=== PATIENT | female | born 1990 | race Caucasian/White ===

== ENCOUNTER 2017-02-13 10:17 | Outpatient (CLI) | payer BC, OTHER ==
[~2017-02-13] VITALS: Ht 162.6 cm; Wt 93.4 kg
[~2017-02-13 10:17] MED LIST: AQUAPHOR W-NAT50 GM TP; CLINDAMYCIN HC300 MG PO; ENDOCET 5-3251 EACH PO; MEDROL DOSEPAK4 MG PO; MOTRIN600 MG PO; MOTRIN800 MG PO; Motrin PO; NOHOMEMEDS; PERCOCET 5/31 TABLET PO; PREDNISONE10 MG PO; PRENATAL CAPSU1 EACH PO; PRENATAL TABLE1 EAC3 PO; Percocet 5/325,Endoc PO; ZITHROMAX Z-PA250 MG PO
[2017-02-13 10:44] VITALS: BP 128/71
[2017-02-13 10:45] VITALS: BP 128/71
[2017-02-13 11:54] LABS: EOSINOPHIL (%) 1.1 % (0-5); EOSINOPHIL COUNT 0.1 K/uL (0-0.3); HEMATOCRIT 37.1 % (36.0-46.0); IMMATURE GRANULOCYTE (%) 0.5 % (0.0-0.7); IMMATURE GRANULOCYTE COUNT 0.1 K/uL; INSTRUMENT ABS NEUTROPHIL CT 8.9 K/uL; MCV 91.2 FL (83-99); MEAN PLAT.VOLUME 12.8 uM^3 (9.5-12.4); MONOCYTE (%) 6.3 % (3-12); MONOCYTE COUNT 0.8 K/uL (0-0.8); NEUTROPHIL (%) 74.8 % (45-76); NEUTROPHIL COUNT 8.9 K/uL (1.8-6.4); PLATELET COUNT 174 K/uL (156-360); RBC DIS.WIDTH-CV 12.3 % (11.8-14.6); RBC DIS.WIDTH-SD 40.9 % (39-53); RED BLOOD COUNT 4.07 M/uL (3.80-5.20); WHITE BLOOD COUNT 11.9 K/uL (4.1-10.2)
[2017-02-13 12:00] VITALS: BP 124/67
[2017-02-13 12:18] LABS: ALKALINE PHOSPHATASE 58 IU/L (3-129); ANION GAP 7 MEQ/L (2-14); CHLORIDE 108 MEQ/L (99-109); GFR ESTIMATE (CALCULATED) > 59 mL/min/; GLUCOSE 79 mg/dL (70-99); POTASSIUM 3.8 MEQ/L (3.7-5.4); SAMPLE HEMOLYSIS CHECK 0; SAMPLE ICTERIC CHECK 0; SAMPLE LIPEMIA CHECK 0; SODIUM 138 MEQ/L (136-147); TOTAL BILIRUBIN 0.2 MG/DL (0.0-1.0); UREA NITROGEN (BUN) 6 mg/dL (9-23)
== END 2017-02-13 13:40 | disposition home or self-care (01) ==
LOC: LDRP-OP 10:17 → 2WEST 10:18
PROVIDERS: Obstetrics & Gynecology
DX: O13.2 Gestational [pregnancy-induced] hypertension without significant proteinuria, second trimester (principal); Z3A.23 23 weeks gestation of pregnancy; O99.332 Smoking (tobacco) complicating pregnancy, second trimester; F17.200 Nicotine dependence, unspecified, uncomplicated; O99.212 Obesity complicating pregnancy, second trimester; Z68.33 Body mass index [BMI] 33.0-33.9, adult; E66.9 Obesity, unspecified; O34.219 Maternal care for unspecified type scar from previous cesarean delivery
CPT/HCPCS: 59025; 80053; 85025; G0378

== ENCOUNTER 2017-03-19 12:07 | Outpatient (CLI) | payer BC, OTHER ==
[2017-03-19 12:35] VITALS: BP 129/73
[2017-03-19 12:55] VITALS: BP 117/60
[2017-03-19 13:21] VITALS: BP 126/66
[2017-03-19 14:25] VITALS: BP 116/60
[2017-03-19 14:27] LABS: ANION GAP 9 MEQ/L (2-14); CHLORIDE 107 MEQ/L (99-109); POTASSIUM 4.2 MEQ/L (3.7-5.4); SAMPLE HEMOLYSIS CHECK 1; SAMPLE ICTERIC CHECK 0; SAMPLE LIPEMIA CHECK 0; SODIUM 136 MEQ/L (136-147); TOTAL BILIRUBIN 0.3 MG/DL (0.0-1.0)
[2017-03-19 14:28] LABS: UR CREATININE CONCENTRATION 86.4 MG/DL
[2017-03-19 14:33] LABS: ALKALINE PHOSPHATASE 71 IU/L (3-129); GFR ESTIMATE (CALCULATED) > 59 mL/min/; GLUCOSE 67 mg/dL (70-99); LACTATE DEHYDROGENASE 254 IU/L (20-246); UREA NITROGEN (BUN) 4 mg/dL (9-23); URIC ACID 3.2 mg/dL (3.1-9.2)
[2017-03-19 15:19] LABS: EOSINOPHIL (%) 0.6 % (0-5); EOSINOPHIL COUNT 0.1 K/uL (0-0.3); HEMATOCRIT 39.9 % (36.0-46.0); IMMATURE GRANULOCYTE (%) 0.6 % (0.0-0.7); IMMATURE GRANULOCYTE COUNT 0.1 K/uL; INSTRUMENT ABS NEUTROPHIL CT 14.3 K/uL; LYMPHOCYTE COUNT 2.1 K/uL (1.0-2.8); MCH 31.3 PG (29.0-34.0); MCHC 34.1 G/DL (30.0-36.0); MCV 91.7 FL (83-99); MEAN PLAT.VOLUME 12.9 uM^3 (9.5-12.4); MONOCYTE (%) 5.6 % (3-12); NEUTROPHIL (%) 81.4 % (45-76); NEUTROPHIL COUNT 14.3 K/uL (1.8-6.4); PLATELET COUNT 150 K/uL (156-360); RBC DIS.WIDTH-CV 12.5 % (11.8-14.6); RBC DIS.WIDTH-SD 41.5 % (39-53); RED BLOOD COUNT 4.35 M/uL (3.80-5.20); WHITE BLOOD COUNT 17.5 K/uL (4.1-10.2)
== END 2017-03-19 15:50 | disposition home or self-care (01) ==
LOC: LDRP-OP 12:07 → 2WEST 12:08 → LDRP-OP 07-08 16:54
PROVIDERS: Obstetrics & Gynecology
DX: O13.3 Gestational [pregnancy-induced] hypertension without significant proteinuria, third trimester (principal); Z3A.28 28 weeks gestation of pregnancy
CPT/HCPCS: 59025; 80053; 82570; 83615; 84156; 84550; 85025; G0378

== ENCOUNTER 2017-05-07 12:37 | Outpatient (CLI) | payer BC, OTHER ==
[2017-05-07 12:55] VITALS: BP 135/74
[2017-05-07 13:25] VITALS: BP 133/72
[2017-05-07 13:50] LABS: EOSINOPHIL COUNT 0.1 K/uL (0-0.3); HEMATOCRIT 37.5 % (36.0-46.0); IMMATURE GRANULOCYTE (%) 0.5 % (0.0-0.7); IMMATURE GRANULOCYTE COUNT 0.1 K/uL; INSTRUMENT ABS NEUTROPHIL CT 7.5 K/uL; LYMPHOCYTE COUNT 2.3 K/uL (1.0-2.8); MCH 32.1 PG (29.0-34.0); MCHC 35.7 G/DL (30.0-36.0); MCV 89.7 FL (83-99); MEAN PLAT.VOLUME 13.2 uM^3 (9.5-12.4); MONOCYTE COUNT 0.6 K/uL (0-0.8); NEUTROPHIL (%) 71.1 % (45-76); NEUTROPHIL COUNT 7.5 K/uL (1.8-6.4); PLATELET COUNT 125 K/uL (156-360); RBC DIS.WIDTH-CV 12.8 % (11.8-14.6); RBC DIS.WIDTH-SD 41.2 % (39-53); RED BLOOD COUNT 4.18 M/uL (3.80-5.20); WHITE BLOOD COUNT 10.6 K/uL (4.1-10.2)
[2017-05-07 14:32] VITALS: BP 116/64
[2017-05-07 15:03] VITALS: BP 123/57
[2017-05-07 15:04] LABS: CHLORIDE 107 MEQ/L (99-109); POTASSIUM 3.5 MEQ/L (3.7-5.4); SODIUM 136 MEQ/L (136-147)
[2017-05-07 15:05] LABS: ANION GAP 9 MEQ/L (2-14); SAMPLE HEMOLYSIS CHECK 0; SAMPLE ICTERIC CHECK 0; SAMPLE LIPEMIA CHECK 0; TOTAL BILIRUBIN 0.3 MG/DL (0.0-1.0)
[2017-05-07 15:10] LABS: ALKALINE PHOSPHATASE 111 IU/L (3-129); GFR ESTIMATE (CALCULATED) > 59 mL/min/; GLUCOSE 74 mg/dL (70-99); LACTATE DEHYDROGENASE 148 IU/L (20-246); UREA NITROGEN (BUN) 4 mg/dL (9-23); URIC ACID 4.6 mg/dL (3.1-9.2)
== END 2017-05-07 15:35 | disposition home or self-care (01) ==
LOC: LDRP-OP 12:37 → 2WEST 12:38 → LDRP-OP 07-08 19:52
PROVIDERS: Obstetrics & Gynecology
DX: O13.3 Gestational [pregnancy-induced] hypertension without significant proteinuria, third trimester (principal); Z3A.35 35 weeks gestation of pregnancy
CPT/HCPCS: 59025; 80053; 82570; 83615; 84156; 84550; 85025; G0378

== ENCOUNTER 2017-05-09 10:19 | Outpatient (CLI) | payer BC, OTHER ==
[~2017-05-09] VITALS: Ht 162.6 cm; Wt 97.7 kg
[2017-05-09 10:34] VITALS: BP 133/85
[2017-05-09] MEDS ORDERED: MAKENA250 MG/11 IM (10:57)
[2017-05-09 10:58] VITALS: BP 144/65
[2017-05-09 11:32] VITALS: BP 134/57
[2017-05-09 11:51] LABS: UR CREATININE CONCENTRATION 352.1 MG/DL
[2017-05-09 11:54] VITALS: BP 140/73
[2017-05-09 12:14] LABS: EOSINOPHIL (%) 0.7 % (0-5); EOSINOPHIL COUNT 0.1 K/uL (0-0.3); HEMATOCRIT 40.8 % (36.0-46.0); IMMATURE GRANULOCYTE (%) 0.7 % (0.0-0.7); IMMATURE GRANULOCYTE COUNT 0.1 K/uL; INSTRUMENT ABS NEUTROPHIL CT 7.3 K/uL; LYMPHOCYTE COUNT 2.2 K/uL (1.0-2.8); MCH 31.3 PG (29.0-34.0); MCHC 34.8 G/DL (30.0-36.0); MCV 90.1 FL (83-99); MEAN PLAT.VOLUME 13.7 uM^3 (9.5-12.4); MONOCYTE (%) 5.4 % (3-12); MONOCYTE COUNT 0.6 K/uL (0-0.8); NEUTROPHIL (%) 71.6 % (45-76); NEUTROPHIL COUNT 7.3 K/uL (1.8-6.4); PLATELET COUNT 147 K/uL (156-360); RBC DIS.WIDTH-CV 12.9 % (11.8-14.6); RBC DIS.WIDTH-SD 42.4 % (39-53); RED BLOOD COUNT 4.53 M/uL (3.80-5.20); WHITE BLOOD COUNT 10.2 K/uL (4.1-10.2)
[2017-05-09 13:19] LABS: ANION GAP 9 MEQ/L (2-14); CHLORIDE 107 MEQ/L (99-109); POTASSIUM 3.9 MEQ/L (3.7-5.4); SAMPLE HEMOLYSIS CHECK 0; SAMPLE ICTERIC CHECK 0; SAMPLE LIPEMIA CHECK 0; SODIUM 137 MEQ/L (136-147); TOTAL BILIRUBIN 0.3 MG/DL (0.0-1.0)
[2017-05-09 13:24] LABS: ALKALINE PHOSPHATASE 119 IU/L (3-129); GFR ESTIMATE (CALCULATED) > 59 mL/min/; GLUCOSE 66 mg/dL (70-99); UREA NITROGEN (BUN) 6 mg/dL (9-23)
== END 2017-05-09 13:40 | disposition home or self-care (01) ==
LOC: LDRP-OP 10:19 → 2WEST 10:20 → LDRP-OP 07-08 15:40
PROVIDERS: Advanced Practice Midwife
DX: O13.3 Gestational [pregnancy-induced] hypertension without significant proteinuria, third trimester (principal); Z3A.35 35 weeks gestation of pregnancy
CPT/HCPCS: 59025; 80053; 82570; 84156; 85025; G0378; J0702

== ENCOUNTER 2017-05-10 11:25 | Outpatient (CLI) | payer BC, OTHER ==
[~2017-05-10] VITALS: Ht 162.6 cm; Wt 97.5 kg
[~2017-05-10 11:25] MED LIST changes: +MAKENA250 MG/11 IM
[2017-05-10 11:47] VITALS: BP 141/75
[2017-05-10 12:00] VITALS: BP 122/68
[2017-05-10 12:22] VITALS: BP 119/72
[2017-05-10 12:53] VITALS: BP 120/81
== END 2017-05-10 13:00 | disposition home or self-care (01) ==
LOC: LDRP-OP 11:25 → 2WEST 11:26 → LDRP-OP 07-08 20:04
DX: O13.3 Gestational [pregnancy-induced] hypertension without significant proteinuria, third trimester (principal); Z3A.36 36 weeks gestation of pregnancy
CPT/HCPCS: 59025; G0378; J0702

== ENCOUNTER 2017-05-13 15:17 | Inpatient (IN) | payer BC, OTHER ==
[~2017-05-13] VITALS: Ht 162.6 cm; Wt 97.9 kg
[2017-05-13 15:38] VITALS: BP 162/73
[2017-05-13 15:54] VITALS: BP 151/81
[2017-05-13 16:09] VITALS: BP 148/66
[2017-05-13 16:39] LABS: EOSINOPHIL (%) 0.3 % (0-5); HEMATOCRIT 39.1 % (36.0-46.0); IMMATURE GRANULOCYTE (%) 1.7 % (0.0-0.7); IMMATURE GRANULOCYTE COUNT 0.2 K/uL; INSTRUMENT ABS NEUTROPHIL CT 9.6 K/uL; MCH 32.2 PG (29.0-34.0); MCHC 35.8 G/DL (30.0-36.0); MCV 89.9 FL (83-99); MEAN PLAT.VOLUME 13.7 uM^3 (9.5-12.4); MONOCYTE (%) 7.7 % (3-12); MONOCYTE COUNT 1.1 K/uL (0-0.8); NEUTROPHIL (%) 68.7 % (45-76); NEUTROPHIL COUNT 9.6 K/uL (1.8-6.4); NRBC (%) 0.1 /100 WBC (0-0); PLATELET COUNT 123 K/uL (156-360); RBC DIS.WIDTH-CV 12.8 % (11.8-14.6); RBC DIS.WIDTH-SD 41.3 % (39-53); RED BLOOD COUNT 4.35 M/uL (3.80-5.20)
[2017-05-13 16:49] LABS: ANION GAP 12 MEQ/L (2-14); CHLORIDE 107 MEQ/L (99-109); POTASSIUM 3.3 MEQ/L (3.7-5.4); SAMPLE HEMOLYSIS CHECK 0; SAMPLE ICTERIC CHECK 0; SAMPLE LIPEMIA CHECK 0; SODIUM 139 MEQ/L (136-147); TOTAL BILIRUBIN 0.3 MG/DL (0.0-1.0)
[2017-05-13 16:58] LABS: ALKALINE PHOSPHATASE 103 IU/L (3-129); GFR ESTIMATE (CALCULATED) > 59 mL/min/; GLUCOSE 77 mg/dL (70-99); UREA NITROGEN (BUN) 8 mg/dL (9-23); URIC ACID 5.3 mg/dL (3.1-9.2)
[2017-05-13 18:26] LABS: UR CREATININE CONCENTRATION 239.8 MG/DL
[2017-05-13 18:27] LABS: BASE EXCESS -14.9 mEq/L (-3 to +3); BICARBONATE 18.5 mEq/L (22-26); CARBOXY HGB 3.1 % (0-5); COMMENTS - BLOOD GASES FROM O.R.; METHEMOGLOBIN 1.5 % (0-1.5); PCO2 75 mm Hg (35-45); PO2 < 28 mm Hg (80-100); SITE VENOUES CORD SAMPL
[2017-05-13 18:30] LABS: BASE EXCESS -15.5 mEq/L (-3 to +3); BICARBONATE 17.4 mEq/L (22-26); METHEMOGLOBIN 1.8 % (0-1.5)
[2017-05-13 18:31] LABS: COMMENTS - BLOOD GASES FROM O.R.; PCO2 69 mm Hg (35-45); PO2 < 28 mm Hg (80-100); SITE ARTERIAL CORD SAMP.; pH 7.01 (7.35-7.45)
[2017-05-13 19:31] VITALS: BP 134/76
[2017-05-13 20:33] VITALS: BP 120/74
[2017-05-13 22:34] VITALS: BP 140/64
[2017-05-13 23:29] LABS: HEMATOCRIT 32.7 % (36.0-46.0); MCH 31.8 PG (29.0-34.0); MCHC 35.5 G/DL (30.0-36.0); MCV 89.6 FL (83-99); MEAN PLAT.VOLUME 13.1 uM^3 (9.5-12.4); NRBC (%) 0.1 /100 WBC (0-0); PLATELET COUNT 96 K/uL (156-360); RBC DIS.WIDTH-CV 12.7 % (11.8-14.6); RBC DIS.WIDTH-SD 41.6 % (39-53); RED BLOOD COUNT 3.65 M/uL (3.80-5.20); WHITE BLOOD COUNT 22.5 K/uL (4.1-10.2)
[2017-05-14] VITALS (7 sets, daily range): BP systolic 128–143; BP diastolic 74–87
[2017-05-14] MEDS ORDERED: PERCOCET 5/31 TABLET PO (02:58)
[2017-05-14] MEDS ORDERED: MOTRIN800 MG PO (02:58)
[2017-05-14 07:32] LABS: EOSINOPHIL (%) 0.3 % (0-5); HEMATOCRIT 29.2 % (36.0-46.0); IMMATURE GRANULOCYTE (%) 0.8 % (0.0-0.7); IMMATURE GRANULOCYTE COUNT 0.1 K/uL; INSTRUMENT ABS NEUTROPHIL CT 10.5 K/uL; LYMPHOCYTE COUNT 2.2 K/uL (1.0-2.8); MCH 31.5 PG (29.0-34.0); MCHC 34.9 G/DL (30.0-36.0); MCV 90.1 FL (83-99); MEAN PLAT.VOLUME 13.1 uM^3 (9.5-12.4); MONOCYTE (%) 9.1 % (3-12); MONOCYTE COUNT 1.3 K/uL (0-0.8); NEUTROPHIL (%) 73.9 % (45-76); NEUTROPHIL COUNT 10.5 K/uL (1.8-6.4); PLATELET COUNT 85 K/uL (156-360); RBC DIS.WIDTH-CV 12.8 % (11.8-14.6); RBC DIS.WIDTH-SD 41.6 % (39-53); RED BLOOD COUNT 3.24 M/uL (3.80-5.20); WHITE BLOOD COUNT 14.1 K/uL (4.1-10.2)
[2017-05-15 03:21] VITALS: BP 152/85
[2017-05-15 07:10] LABS: EOSINOPHIL COUNT 0.1 K/uL (0-0.3); HEMATOCRIT 28.3 % (36.0-46.0); IMMATURE GRANULOCYTE (%) 1.2 % (0.0-0.7); IMMATURE GRANULOCYTE COUNT 0.1 K/uL; INSTRUMENT ABS NEUTROPHIL CT 7.9 K/uL; LYMPHOCYTE COUNT 2.1 K/uL (1.0-2.8); MCH 31.5 PG (29.0-34.0); MCHC 34.6 G/DL (30.0-36.0); MEAN PLAT.VOLUME 13.8 uM^3 (9.5-12.4); MONOCYTE (%) 10.5 % (3-12); MONOCYTE COUNT 1.2 K/uL (0-0.8); NEUTROPHIL (%) 68.8 % (45-76); NEUTROPHIL COUNT 7.9 K/uL (1.8-6.4); PLATELET COUNT 82 K/uL (156-360); RBC DIS.WIDTH-CV 12.9 % (11.8-14.6); RED BLOOD COUNT 3.11 M/uL (3.80-5.20); WHITE BLOOD COUNT 11.5 K/uL (4.1-10.2)
[2017-05-15 08:30] VITALS: BP 151/78
== END 2017-05-15 15:50 | disposition home or self-care (01) | DRG 766 ==
LOC: LDRP-OP 15:17 → 2WEST 15:18 → LDRP-OP 06-08 15:04
PROVIDERS: Nurse Practitioner; Obstetrics & Gynecology
DX: O14.94 Unspecified pre-eclampsia, complicating childbirth (principal); O34.211 Maternal care for low transverse scar from previous cesarean delivery; O45.93 Premature separation of placenta, unspecified, third trimester; O60.14X0 Preterm labor third trimester with preterm delivery third trimester, not applicable or unspecified; O76 Abnormality in fetal heart rate and rhythm complicating labor and delivery; Z37.0 Single live birth; Z30.2 Encounter for sterilization; Z3A.36 36 weeks gestation of pregnancy
CPT/HCPCS: 36600; 59025; 80053; 82570; 82803; 84156; 84550; 85025; 85027; 86900; 86901; 88302; 88307; G0378; J0702; J1580; J2175; J2274; J2590; J7120

== ENCOUNTER 2017-07-14 22:44 | Emergency (ER) | payer BC, OTHER ==
[~2017-07-14] VITALS: Ht 162.6 cm; Wt 89.4 kg
[2017-07-15] MEDS ORDERED: MEDROL DOSEPAK4 MG PO (00:38)
[2017-07-15] MEDS ORDERED: EPIPEN ADU0.3 MG/0.3 IM (00:39)
[2017-07-15 00:58] VITALS: BP 114/77
== END 2017-07-15 01:00 | disposition home or self-care (01) ==
LOC: EME 22:44 → EXP 22:44
DX: T78.40XA Allergy, unspecified, initial encounter (principal); X58.XXXA Exposure to other specified factors, initial encounter; L50.9 Urticaria, unspecified; F17.200 Nicotine dependence, unspecified, uncomplicated
CPT/HCPCS: 99281; 99285; J1200; J2930; J7030; S0028